=== PATIENT | female | born 1990 | race Caucasian/White ===

== ENCOUNTER 2016-10-27 20:59 | Emergency (ER) | payer BC, OTHER ==
[~2016-10-27] VITALS: Ht 162.6 cm; Wt 61.2 kg
[~2016-10-27 20:59] MED LIST: BACTRIM DS TABL1 TA1 PO; FERROUS SULFATE PO; IBUPROFEN800 MG PO; KEFLEX500 MG PO; NO MEDICATIONS; PHENERGAN25 M1 PO; PRENATAL MULITV1 TAB PO; PYRIDIUM PO; ULTRAM PO; VICODIN 5/1 TAB 5/50 PO
[2016-10-27] MEDS ORDERED: NO MEDICATIONS (21:11)
== END 2016-10-27 22:38 | disposition home or self-care (01) ==
LOC: SED 20:59
DX: J06.9 Acute upper respiratory infection, unspecified (principal); F41.9 Anxiety disorder, unspecified; F32.9 Major depressive disorder, single episode, unspecified; D64.9 Anemia, unspecified; F17.200 Nicotine dependence, unspecified, uncomplicated; Z98.890 Other specified postprocedural states
CPT/HCPCS: 99283